=== PATIENT | male | born 1960 | race Caucasian/White ===

== ENCOUNTER 2017-09-13 03:49 | Emergency (ER) | payer OTHER ==
[~2017-09-13] VITALS: Ht 172.7 cm; Wt 70.0 kg
[2017-09-13] MEDS ORDERED: QUET25TA PO (04:30)
[2017-09-13] MEDS ORDERED: CARV-39 PO (04:30)
[2017-09-13] MEDS ORDERED: LISI-170 PO (04:30)
[2017-09-13] MEDS ORDERED: AMLO2.5T PO (04:30)
[2017-09-13] MEDS ORDERED: ENOX40SY4 SQ (04:30)
[2017-09-13 05:46] VITALS: BP 158/76
== END 2017-09-13 06:13 | disposition short-term general hospital (02) ==
LOC: ED 05:27
DX: F15.10 Other stimulant abuse, uncomplicated (principal); I10 Essential (primary) hypertension; Z72.9 Problem related to lifestyle, unspecified; Z86.19 Personal history of other infectious and parasitic diseases; Z86.73 Personal history of transient ischemic attack (TIA), and cerebral infarction without residual deficits
CPT/HCPCS: 99285